=== PATIENT | male | born 1955 | race Caucasian/White ===

== ENCOUNTER 2024-06-30 19:32 | Inpatient (IN) | payer OTHER ==
[2024-06-30] MEDS ORDERED: Acetaminophen 650 MG Suppository PR PRN (20:20)
[2024-06-30] MEDS: Lactulose 20 GM (30 mL) UDCUP PO SCH (21:16)
[2024-06-30] MEDS: Acetaminophen 500 MG TAB PO PRN (21:17)
[2024-06-30] MEDS: Famotidine 20 MG TAB PO SCH (21:17)
[2024-06-30] MEDS: Famotidine/PF 20 mg/2ml Vial SLOW IVP SCH (21:17)
[2024-06-30 21:22] VITALS: BMI 37.6
[2024-06-30] MEDS: Oseltamivir 75 MG CAP PO SCH (21:22)
[2024-06-30] MEDS: Ondansetron PF 4 MG/2 ML Vial IVP PRN (21:25)
[2024-07-01] MEDS: HYDROcodone/Acetaminophen 5/325 mg Tablet PO PRN (02:04)
[2024-07-01] MEDS: Morphine 2 MG/ML VIAL SLOW IVP PRN ×2 (04:22→21:03)
[2024-07-01 05:50] LABS: #Basophils 0.09 10x3/uL (0.0-0.2); %Basophils 0.9 % (0.0-1.0); %Eosinophils 1.3 % (0.0-10.0); %Lymphocytes 10.6 % (21.0-51.0); %Neutrophils 68.4 % (42.0-75.0); Hematocrit 36.1 % (42.0-52.0); Hemoglobin 12.2 g/dL (14.0-18.0); Mean Corpuscular HGB CONC 33.8 g/dL (32.0-36.0); Mean Corpuscular Hemoglobin 32.2 pg (27.0-31.0); Mean Corpuscular Volume 95.3 fL (78.0-98.0); Mean Platelet Volume 12.2 fL (7.4-10.4); Platelet Count 76 10x3/uL (130-400); RBC Distribution Width 13.6 % (11.5-14.5); Red Blood Cell (RBC) Count 3.79 mill/uL (4.70-6.10)
[2024-07-01 06:03] LABS: ALT (SGPT) 17 U/L (8-55); AST (SGOT) 24 U/L (5-34); Albumin 2.7 g/dL (3.4-4.8); Alkaline Phosphatase 97 U/L (40-110); Anion Gap 15 mmol/L (10-20); BUN (Urea Nitrogen) 25 mg/dL (8.4-25.7); Bilirubin, Total 1.2 mg/dL (0.2-1.2); Calc. Creatinine Clearance 103 mL/min (70-130); Calcium 8.4 mg/dL (7.8-10.44); Carbon Dioxide 21 mmol/L (23-31); Chloride 105 mmol/L (98-107); Estimated GFR 67; Globulin 3.1 g/dL (2.4-3.5); Glucose 97 mg/dL (80-115); Potassium 4.6 mmol/L (3.5-5.1); Protein, Total 5.8 g/dL (5.8-8.1); Sodium 136 mmol/L (136-145); Vancomycin, Random 16.4 ug/mL (See Comment)
[2024-07-01] MEDS: Mometasone 200 MCG/Formoterol 5 MCG 120 PUFF INHALER INH SCH (07:12)
[2024-07-01] MEDS: Carvedilol 6.25 MG TAB PO SCH (08:17)
[2024-07-01] MEDS ORDERED: VANCOMYCIN 1.25 GM/250 ML BAG IVPB SCH (09:00)
[2024-07-01] MEDS: Furosemide 40 MG TAB PO SCH ×2 (09:58→20:53)
[2024-07-01] MEDS: tiZANidine HCl 4 MG TAB PO SCH ×2 (09:58→20:53)
[2024-07-01] MEDS: Gabapentin 300 MG CAP PO SCH ×2 (09:58→14:33)
[2024-07-01] MEDS: VANCOMYCIN 1.25 GM/250 ML BAG 1.25 GM in Premix 1 BAG IVPB SCH (15:19)
[2024-07-01] MEDS: Spironolactone 25 MG TAB PO SCH (20:54)
[2024-07-01] MEDS: Ondansetron ODT 4 MG TAB PO PRN (21:03)
[2024-07-02 05:49] LABS: Anion Gap 14 mmol/L (10-20); BUN (Urea Nitrogen) 26 mg/dL (8.4-25.7); Calc. Creatinine Clearance 96 mL/min (70-130); Calcium 8.6 mg/dL (7.8-10.44); Carbon Dioxide 22 mmol/L (23-31); Chloride 103 mmol/L (98-107); Estimated GFR 61; Glucose 92 mg/dL (80-115); Potassium 4.4 mmol/L (3.5-5.1); Sodium 135 mmol/L (136-145)
[2024-07-02 05:53] LABS: #Basophils 0.07 10x3/uL (0.0-0.2); %Basophils 0.5 % (0.0-1.0); %Eosinophils 1.8 % (0.0-10.0); %Lymphocytes 10.5 % (21.0-51.0); %Monocytes 10.8 % (0.0-10.0); %Neutrophils 72.3 % (42.0-75.0); Hematocrit 37.3 % (42.0-52.0); Hemoglobin 12.7 g/dL (14.0-18.0); Mean Corpuscular Hemoglobin 32.2 pg (27.0-31.0); Mean Corpuscular Volume 94.7 fL (78.0-98.0); Mean Platelet Volume 11.8 fL (7.4-10.4); Platelet Count 105 10x3/uL (130-400); RBC Distribution Width 13.6 % (11.5-14.5); Red Blood Cell (RBC) Count 3.94 mill/uL (4.70-6.10)
[2024-07-02 06:00] LABS: CRP,High Sensitivity (Inhouse) 16.16 mg/dL (< or = 0.5)
[2024-07-02] MEDS: Folic Acid 1 MG TAB PO SCH (08:48)
[2024-07-02] MEDS: GUAIFENESIN SF SOLN 200 MG/10 ML UDCUP PO PRN (09:06)
[2024-07-02 11:17] VITALS: BMI 37.6
[2024-07-02] MEDS: Furosemide 40 MG (4 mL) VIAL SLOW IVP SCH (12:15)
[2024-07-02] MEDS: guaiFENesin ER 600 MG TAB PO SCH ×2 (12:15→22:15)
[2024-07-02] MEDS: Milk Of Magnesia 30 ML UDCUP PO SCH (12:15)
[2024-07-02] MEDS: Ipratropium/Albuterol 3 ML NEB NEB SCH ×3 (12:33→18:15)
[2024-07-02] MEDS: Senokot S 8.6-50 MG TAB PO SCH (22:18)
[2024-07-02] MEDS: Budesonide 0.5 MG/2 ML NEB INH SCH (22:52)
[2024-07-03 05:45] LABS: #Basophils 0.08 10x3/uL (0.0-0.2); %Basophils 0.7 % (0.0-1.0); %Eosinophils 1.8 % (0.0-10.0); %Lymphocytes 12.3 % (21.0-51.0); %Monocytes 12.1 % (0.0-10.0); %Neutrophils 69.3 % (42.0-75.0); Hemoglobin 12.6 g/dL (14.0-18.0); Mean Corpuscular HGB CONC 34.1 g/dL (32.0-36.0); Mean Corpuscular Hemoglobin 31.9 pg (27.0-31.0); Mean Corpuscular Volume 93.7 fL (78.0-98.0); Platelet Count 115 10x3/uL (130-400); RBC Distribution Width 13.3 % (11.5-14.5); Red Blood Cell (RBC) Count 3.95 mill/uL (4.70-6.10)
[2024-07-03 05:53] LABS: Anion Gap 17 mmol/L (10-20); BUN (Urea Nitrogen) 32 mg/dL (8.4-25.7); Calc. Creatinine Clearance 80 mL/min (70-130); Calcium 8.4 mg/dL (7.8-10.44); Carbon Dioxide 24 mmol/L (23-31); Chloride 98 mmol/L (98-107); Estimated GFR 49; Glucose 96 mg/dL (80-115); Magnesium 2.2 mg/dL (1.6-2.6); Potassium 4.6 mmol/L (3.5-5.1); Sodium 134 mmol/L (136-145)
[2024-07-03] MEDS: Polyethylene Glycol 3350 17 GM Packet PO SCH (08:37)
[2024-07-03] MEDS: SODIUM CHLORIDE 0.9% IVPB SCH (12:56)
[2024-07-03] MEDS: DAPTOMYCIN IVPB SCH (12:56)
[2024-07-04] MEDS: Acetaminophen 500 MG TAB PO PRN (00:49)
[2024-07-04 04:28] LABS: Bilirubin Negative (Negative); Blood, Urine Negative (Negative); Clarity Clear (Clear); Glucose, Urine (Dipstick) Normal (Negative); Ketone, Urine Negative (Negative); Leukocyte Negative Leu/uL (Negative); Nitrite Negative (Negative); Protein, Urine (Dipstick) Negative (Neg-Trace); RBC/HPF 0-3 HPF (0-3); Specific Gravity, Urine 1.017 (1.002-1.036); Squamous Epithelial 0-3 HPF (0-3); Urobilinogen Normal mg/dL (Less than 2); WBC/HPF 0-3 HPF (0-3); pH, Urine 5.5 (5.0-9.0)
[2024-07-04 04:29] LABS: Bacteria/HPF Rare-Few HPF (None Seen)
[2024-07-04 05:56] LABS: #Basophils 0.09 10x3/uL (0.0-0.2); %Basophils 0.5 % (0.0-1.0); %Eosinophils 0.4 % (0.0-10.0); %Lymphocytes 2.3 % (21.0-51.0); %Monocytes 5.4 % (0.0-10.0); %Neutrophils 89.7 % (42.0-75.0); Hematocrit 35.7 % (42.0-52.0); Hemoglobin 12.4 g/dL (14.0-18.0); Mean Corpuscular HGB CONC 34.7 g/dL (32.0-36.0); Mean Corpuscular Hemoglobin 32.1 pg (27.0-31.0); Mean Corpuscular Volume 92.5 fL (78.0-98.0); Mean Platelet Volume 11.7 fL (7.4-10.4); Platelet Count 117 10x3/uL (130-400); RBC Distribution Width 13.2 % (11.5-14.5); Red Blood Cell (RBC) Count 3.86 mill/uL (4.70-6.10)
[2024-07-04 06:29] LABS: Anion Gap 17 mmol/L (10-20); BUN (Urea Nitrogen) 36 mg/dL (8.4-25.7); Calc. Creatinine Clearance 69 mL/min (70-130); Calcium 8.4 mg/dL (7.8-10.44); Carbon Dioxide 21 mmol/L (23-31); Chloride 95 mmol/L (98-107); Estimated GFR 41; Glucose 141 mg/dL (80-115); Potassium 4.8 mmol/L (3.5-5.1); Sodium 128 mmol/L (136-145)
[2024-07-04] MEDS ORDERED: Ipratropium/Albuterol 3 ML NEB NEB PRN (08:03)
[2024-07-04] MEDS: Sodium Chloride 0.9% 500 ML IV SCH (18:23)
[2024-07-04] MEDS: Albumin 25% 25 GM (100 mL) BOT IVPB SCH (18:23)
[2024-07-04] MEDS: Ipratropium/Albuterol 3 ML NEB NEB SCH (20:06)
[2024-07-04] MEDS: Gabapentin 300 MG CAP PO SCH (21:41)
[2024-07-05 07:53] LABS: Anion Gap 15 mmol/L (10-20); BUN (Urea Nitrogen) 38 mg/dL (8.4-25.7); Calc. Creatinine Clearance 76 mL/min (70-130); Calcium 8.7 mg/dL (7.8-10.44); Carbon Dioxide 25 mmol/L (23-31); Chloride 96 mmol/L (98-107); Estimated GFR 46; Glucose 100 mg/dL (80-115); Potassium 4.8 mmol/L (3.5-5.1); Sodium 131 mmol/L (136-145)
[2024-07-05 08:51] LABS: #Basophils 0.06 10x3/uL (0.0-0.2); %Basophils 0.6 % (0.0-1.0); %Eosinophils 1.7 % (0.0-10.0); %Lymphocytes 4.3 % (21.0-51.0); %Monocytes 7.5 % (0.0-10.0); %Neutrophils 84.5 % (42.0-75.0); Hematocrit 36.8 % (42.0-52.0); Hemoglobin 12.5 g/dL (14.0-18.0); Mean Corpuscular Hemoglobin 31.8 pg (27.0-31.0); Mean Corpuscular Volume 93.6 fL (78.0-98.0); Mean Platelet Volume 11.7 fL (7.4-10.4); Platelet Count 87 10x3/uL (130-400); RBC Distribution Width 12.9 % (11.5-14.5); Red Blood Cell (RBC) Count 3.93 mill/uL (4.70-6.10)
[2024-07-05] MEDS: Sodium Chloride 0.9% 500 ML IV SCH (09:00)
[2024-07-05] MEDS: Benzocaine/Menthol 1 LOZ LOZ PO PRN (09:06)
[2024-07-05] MEDS: Albumin 25% 25 GM (100 mL) BOT IVPB SCH (11:13)
[2024-07-06 05:15] LABS: Anion Gap 15 mmol/L (10-20); BUN (Urea Nitrogen) 39 mg/dL (8.4-25.7); Calc. Creatinine Clearance 74 mL/min (70-130); Calcium 8.6 mg/dL (7.8-10.44); Carbon Dioxide 25 mmol/L (23-31); Chloride 99 mmol/L (98-107); Estimated GFR 45; Glucose 111 mg/dL (80-115); Potassium 4.9 mmol/L (3.5-5.1); Sodium 134 mmol/L (136-145)
[2024-07-06 05:39] LABS: #Basophils 0.06 10x3/uL (0.0-0.2); %Basophils 0.8 % (0.0-1.0); %Eosinophils 2.9 % (0.0-10.0); %Lymphocytes 10.3 % (21.0-51.0); %Monocytes 12.3 % (0.0-10.0); %Neutrophils 72.5 % (42.0-75.0); Hematocrit 34.8 % (42.0-52.0); Hemoglobin 11.9 g/dL (14.0-18.0); Mean Corpuscular HGB CONC 34.2 g/dL (32.0-36.0); Mean Corpuscular Hemoglobin 32.2 pg (27.0-31.0); Mean Corpuscular Volume 94.1 fL (78.0-98.0); Mean Platelet Volume 11.9 fL (7.4-10.4); Platelet Count 93 10x3/uL (130-400); RBC Distribution Width 13.2 % (11.5-14.5)
[2024-07-06] MEDS: Senokot S 8.6-50 MG TAB PO PRN (08:19)
[2024-07-06] MEDS ORDERED: Sodium Bicarbonate 2.5 MEQ/5 ML SDV ONE (08:20)
[2024-07-06] MEDS ORDERED: Lidocaine 1% PF 5 ML VIAL ONE (08:20)
[2024-07-06] MEDS: Acetaminophen 500 MG TAB PO SCH (15:07)
[2024-07-06] MEDS: traMADol HCl 50 MG TAB PO SCH (15:08)
[2024-07-06] MEDS: Senokot S 8.6-50 MG TAB PO SCH (20:51)
[2024-07-07] MEDS ORDERED: hydrALAZINE 25 MG TAB PO PRN (12:20)
[2024-07-07] MEDS: Gabapentin 300 MG CAP PO SCH (15:21)
[2024-07-08 06:01] LABS: #Basophils 0.07 10x3/uL (0.0-0.2); %Basophils 0.9 % (0.0-1.0); %Eosinophils 2.5 % (0.0-10.0); %Lymphocytes 16.1 % (21.0-51.0); %Monocytes 11.5 % (0.0-10.0); %Neutrophils 68.5 % (42.0-75.0); Hematocrit 35.4 % (42.0-52.0); Hemoglobin 11.9 g/dL (14.0-18.0); Mean Corpuscular HGB CONC 33.6 g/dL (32.0-36.0); Mean Corpuscular Hemoglobin 32.4 pg (27.0-31.0); Mean Corpuscular Volume 96.5 fL (78.0-98.0); Mean Platelet Volume 11.8 fL (7.4-10.4); Platelet Count 122 10x3/uL (130-400); RBC Distribution Width 13.2 % (11.5-14.5); Red Blood Cell (RBC) Count 3.67 mill/uL (4.70-6.10)
[2024-07-08 06:20] LABS: Anion Gap 15 mmol/L (10-20); BUN (Urea Nitrogen) 28 mg/dL (8.4-25.7); Calc. Creatinine Clearance 100 mL/min (70-130); Carbon Dioxide 24 mmol/L (23-31); Chloride 102 mmol/L (98-107); Estimated GFR 65; Glucose 94 mg/dL (80-115); Potassium 5.3 mmol/L (3.5-5.1); Sodium 136 mmol/L (136-145)
[2024-07-09 05:35] LABS: #Basophils 0.05 10x3/uL (0.0-0.2); %Basophils 0.6 % (0.0-1.0); %Eosinophils 2.2 % (0.0-10.0); %Monocytes 10.1 % (0.0-10.0); %Neutrophils 72.6 % (42.0-75.0); Hematocrit 34.2 % (42.0-52.0); Hemoglobin 11.6 g/dL (14.0-18.0); Mean Corpuscular HGB CONC 33.9 g/dL (32.0-36.0); Mean Corpuscular Volume 94.5 fL (78.0-98.0); Mean Platelet Volume 11.7 fL (7.4-10.4); Platelet Count 125 10x3/uL (130-400); RBC Distribution Width 13.1 % (11.5-14.5); Red Blood Cell (RBC) Count 3.62 mill/uL (4.70-6.10)
[2024-07-09 06:56] LABS: Anion Gap 16 mmol/L (10-20); BUN (Urea Nitrogen) 27 mg/dL (8.4-25.7); Calc. Creatinine Clearance 84 mL/min (70-130); Calcium 8.7 mg/dL (7.8-10.44); Carbon Dioxide 21 mmol/L (23-31); Chloride 103 mmol/L (98-107); Estimated GFR 52; Glucose 104 mg/dL (80-115); Potassium 4.7 mmol/L (3.5-5.1); Sodium 135 mmol/L (136-145)
[2024-07-09 15:36] VITALS: BP 141/81; TEMP 98
== END 2024-07-09 19:26 | disposition home or self-care (01) | DRG 871 ==
LOC: EEVIPCON 19:32 → SURG A 19:32
PROVIDERS: ADMIT Family Medicine; ATTEND Internal Medicine
PROC: 3E04329 Introduction of Other Anti-infective into Central Vein, Percutaneous Approach (ICD-10-PCS; 2024-06-30)
PROC: 30243J0 Transfusion of Autologous Serum Albumin into Central Vein, Percutaneous Approach (ICD-10-PCS; 2024-06-30)
PROC: 02HV33Z Insertion of Infusion Device into Superior Vena Cava, Percutaneous Approach (ICD-10-PCS; principal; 2024-07-06)
PROC: B5181ZA Fluoroscopy of Superior Vena Cava using Low Osmolar Contrast, Guidance (ICD-10-PCS; 2024-07-06)
DX: A41.02 Sepsis due to Methicillin resistant Staphylococcus aureus (principal); J96.01 Acute respiratory failure with hypoxia; A18.01 Tuberculosis of spine; I50.32 Chronic diastolic (congestive) heart failure; I11.0 Hypertensive heart disease with heart failure; J45.909 Unspecified asthma, uncomplicated; M46.44 Discitis, unspecified, thoracic region; D69.6 Thrombocytopenia, unspecified; K74.60 Unspecified cirrhosis of liver; J10.1 Influenza due to other identified influenza virus with other respiratory manifestations; E66.9 Obesity, unspecified; Z86.19 Personal history of other infectious and parasitic diseases; Z68.37 Body mass index [BMI] 37.0-37.9, adult
CPT/HCPCS: 36415; 36416; 36573; 80048; 80053; 80202; 81001; 83735; 85025; 86141; 87040; 87077; 87186; 94664; C1751; J0878; J1940; J2272; J2405; J3370; J3490; J7030; J7620; J7626; P9047; Q0162